=== PATIENT | male | born 1995 | race African-American/Black ===

== ENCOUNTER 2017-01-22 18:37 | Emergency (ER) | payer OTHER ==
[~2017-01-22] VITALS: Ht 162.6 cm; Wt 60.8 kg
[2017-01-22 18:47] VITALS: TEMP 36.7; Ht 162.6 cm; Wt 60.8 kg
[2017-01-22 20:12] LABS: BUN/CREATININE RATIO 6.3 (10-20); CALCIUM 8.5 mg/dl (8.5-10.1); CREATININE 0.9 mg/dl (0.60-1.40); POTASSIUM 3.8 mmol/L (3.5-5.1)
[2017-01-23 01:17] VITALS: BP 122/70; PULSE 89; O2SAT 95
--- NOTE | 2017-01-23 01:27 | EMERGENCY ROOM VISIT NOTE ---
ED Visit Note First contact with patient: 01:25 s/o from Dr. Kenny. etoh intoxication. Etoh 300s. D/c with clinical sober. Now clinically sober with girlfriend at bedside. OK for d/c.
--- NOTE | 2017-01-23 14:05 | EMERGENCY ROOM VISIT NOTE ---
History Report prepared by Tori: John Childers Under the Supervision of: Dr. Sloan Lopez M.D. First contact with patient: 18:39 Stated Complaint: ETOH History of Present Illness The patient is a 21 year old male who presents to the Emergency Room by EMS for evaluation of constant alcohol intoxication beginning shortly prior to arrival. Per nursing staff, the patient is reported to have fallen today, but did not hit his head or lose consciousness. The fall was witnessed by police. The patient's girlfriend states that the patient was drinking "a lot" of alcohol today, but is unsure exactly how much. The patient denies any abdominal pain or headache. He does not remember falling. HPI limited secondary to alcohol intoxication. Source of History: patient, nursing staff History Limited By: intoxication (alcohol) Onset: Shortly prior to arrival Quality: other (alcohol intoxication) Timing: constant Review of Systems ROS limited secondary to alcohol intoxication. Past Medical & Surgical Unobtainable secondary to alcohol intoxication. Family History Unobtainable secondary to alcohol intoxication. Social History Unobtainable secondary to alcohol intoxication. Current/Historical Medications No Active Prescriptions or Reported Meds Allergies Coded Allergies: No Known Allergies (Unverified , 01/22/17) Physical Exam Vital Signs Date Time Temp Pulse Resp B/P (MAP) Pulse Ox O2 Delivery O2 Flow Rate FiO2 01/23/17 01:17 89 18 122/70 95 Room Air 01/23/17 00:01 71 21 106/71 01/22/17 23:31 78 21 104/43 96 01/22/17 23:14 119/56 01/22/17 23:01 120/66 01/22/17 23:00 70 17 96 01/22/17 22:39 80 22 106/53 95 Room Air 01/22/17 21:42 75 01/22/17 21:40 74 16 105/63 95 Room Air 01/22/17 20:46 70 16 105/63 95 Room Air 01/22/17 19:30 78 22 105/63 95 Room Air 01/22/17 18:47 36.7 77 18 119/65 90 Room Air Physical Exam Constitutional: Vital signs reviewed. Eyes: Pupils are equal round reactive to light. Conjunctiva are noninjected. ENT: NC/AT. Pharynx is clear without erythema or exudate. Mucous membranes are moist. Neck supple without meningeal signs. No midline tenderness to the cervical spine. Respiratory: Clear to auscultation bilaterally. Breath sounds are equal bilaterally. Cardiovascular: Regular rate and rhythm. No rubs or gallops. GI: Soft, nondistended and nontender. Bowel sounds are present. Musculoskeletal: No evidence of trauma. Integumentary: No cyanosis. Neurological: The patient appears intoxicated. Moves all extremities. Psychiatric: Unable to assess. Medical Decision & Procedures Laboratory Results 01/22/17 19:40 Test 01/22/17 19:40 Anion Gap 8.0 mmol/L (3-11) Est Creatinine Clear Calc Drug Dose 108.8 ml/min Estimated GFR () 141.0 Estimated GFR (Non- 121.7 BUN/Creatinine Ratio 6.3 (10-20) Calcium Level 8.5 mg/dl (8.5-10.1) Ethyl Alcohol mg/dL 319.0 mg/dl (0-3) Laboratory results as reviewed by me. ED Course 1839: The patient was evaluated in room C11A. A complete history and physical exam was performed. 1999: I reassessed the patient. He is fast asleep. His girlfriend is in the room , and explained that she witnessed the patients fall. She states that he stumbled and did not hit his head. 2209: I checked in on the patient. He is still asleep. 2299: The patient was signed out to Dr. Bradley at the change of shift pending clinical sobriety. Medical Decision This is a 21-year-old male presents with presumed alcohol intoxication and altered mental status. I did perform a limited focused review of portions of the patient's old chart on the electronic medical record. The patient has had no prior visits to this hospital. Additional history was obtained from the nurse and later the patient's girlfriend due to the patient's condition. Differential diagnosis: Etiologies such as alcohol intoxication, hypoglycemia, electrolyte abnormality, illicit drug use as well as others were considered. ER treatment provided: The patient was placed on a continuous site monitor and pulse oximetry. Diagnostic studies: I did order and review the patient's lab work including an alcohol level and PRP. Disposition: I did reassess the patient several times. He remained intoxicated and sleeping. I did obtain additional history from his girlfriend who stated that he did fall but he did not hit his head or injure himself. She was there when he fell. The patient is still intoxicated and sleeping and so was signed out to Dr. bullock. Medication Reconcilliation Current Medication List: was personally reviewed by me Blood Pressure Screening Patient's blood pressure: Normal blood pressure Blood pressure disposition: Did not require urgent referral Impression Primary Impression: Alcohol intoxication Scribe Attestation The scribe's documentation has been prepared under my direct and personally reviewed by me in its entirety. I confirm that the note above accurately reflects all work, treatment, procedures, and medical decision making performed by me. Departure Information Dispostion Still a Patient (Signed out to Dr. Bradley) Prescriptions No Active Prescriptions or Reported Meds Problem Qualifiers Primary Impression: Alcohol intoxication Complication of substance-induced condition: uncomplicated Qualified Codes: F10.920 - Alcohol use, unspecified with intoxication, uncomplicated
== END 2017-01-23 01:36 | disposition home or self-care (01) ==
LOC: EDBD 18:37 → C.EDC 18:40
DX: F10.129 Alcohol abuse with intoxication, unspecified (principal); Y90.8 Blood alcohol level of 240 mg/100 ml or more